=== PATIENT | female | born 1975 | race Caucasian/White ===

== ENCOUNTER 2022-09-03 13:37 | Outpatient (CLI) | payer BC, OTHER, SELFPAY ==
--- OUTSIDE RECORDS SUMMARY | 2022-09-03 13:41 | XMS_ITS | Clinical Summary ---
:1975 Author Organization [employer] [place] [address] Care Team Providers Name Role Phone Alley Khalil Supriya ARCE Primary Care Provider Allergies Active Allergy Reactions Severity Noted Date Comments Adhesive Tape-Silicones Rash 12/11/2011 Adhesive Rash 12/11/2011 Amoxicillin-Pot Diarrhea 09/13/2017 Clavulanate Doxepin Angioedema High 05/18/2012 PN: throat swel ling PN: throat swel ling Doxycycline GI Upset 12/15/2014 Cephalexin Stomach Upset 10/23/2019 Latex Other - Describe In 05/20/2013 Wheezing ,breathing Comment Field, Rash problems Latex, Natural Rubber Rash Low 08/20/2015 Sulfa (Sulfonamide Rash Low 01/23/2008 Antibiotics) Sulfamethoxazole-Trimet Other - Describe In 05/18/2012 PN: Pt doesn't hoprim Comment Field remember rxn. Medications Medication Sig Dispensed Refills Start End Date Status Date loratadine Take 1 Tab by 0 Activ e (CLARITIN) 10 mg mouth. 4 tablet MULTIVITAMIN Take by mouth. 0 Ac tive ORAL clobetasol cream APPLY TO AFFECTED 0 Active 0.05% (TEMOVATE) AREA ON BODY 1-2X 2 0.05 % cream DAILY FOR 2 WEEKS, THEN NEEDED FOR FLARES fluticasone (50 Inhale 1 [place] 16 g 0 Active mcg per into affected 2 actuation) nasal nostril(s) once solution daily. (FLONASE) cholestyramine-s Mix 1 gram (10/16 348.6 g 0 Active ucrose 4 G per scoop) with liquid 2 scoop (QUESTRAN) and take by mouth 4 gram once daily powderIndication s: Bile reflux gastritis medication order Compounded 30 Capsule 1 A ctive composerIndicati Estriol: 1mg in 2 ons: Vaginal olive oil liquid dryness capsule. Insert 1mg vaginally daily for 2 weeks and then twice weekly medication order Orthomolecular Vitamin D3 wi th K2 drops: 10 drops daily??(10,000iu D3) for 8 weeks and then decrease to 5 drops (5000iu D3 per day) 0 Active composer Metagenics Glutagenics: 1 scoop 1-2 times daily Tirosint 100 mcg Take 100 mcg by 90 Capsule 0 Active capIndications: mouth once daily. 2 Hypothyroidism, unspecified type Tirosint 100 mcg Take 100 mcg by 90 Capsule 0 Discontinued capIndications: mouth once daily. 2 22 (Reorder Hypothyroidism, (E-c ancel not unspecified type sen t)) Active Problems Problem Noted Date Diaphragmatic hernia 09/10/2021 Duodenitis 09/10/2021 Polyp of duodenum 09/10/2021 Hypothyroidism 05/05/2019 Overactive bladder 05/14/2018 Chronic epigastric pain 06/09/2017 Irritable bowel syndrome (IBS) 05/23/2014 Major depressive disorder, single episode, mild 2013 Overview: Formatting of this note might be differe nt from the original. Depression Major One Episode Mild Abnormal uterine bleeding 01/08/2014 Overview: Formatting of this note might be differe nt from the original. 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 Encounters Date Type Specialty Care Team Description 08/02/2022 Medical Messaging Anne Marie Fernando After Visit Summary [facility] 07/19/2022 07/19/2022 Phone Office Visit Anne Marie Fernando Phone Visit; Follow Up [facility]aki 06/21/2022 Refill Anne Marie Fernando Refill Requ est [facility] Maki (Cholestyramine -sucrose 4 G Per Scoop) 06/14/2022 Orders Only Anne Marie Fernando <No scans a ttached> [facility] Maki 06/13/2022 Telemedicine Anne Marie Fernando Telehealth; Follow Up [facility] Maki 06/10/2022 Orders Only Lab, [facility] 06/10/2022 Travel 06/07/2022 Office Visit Alley Khalil, Musculoske letal Problem DO (Knuckle pain o n both hands for the last mo nth, possibly due to playing volleyball ) 06/07/2022 Travel from Last 3 Months Immunizations Name Administration Dates Next Due AMB Influenza, IIV4 PF (=>6 mos 08/21/2019 Flulaval,Fluzone Fluarix)(Flu Clinic Only) Influenza Virus, Unspecified 08/21/2019, 09/01/2017, 017, 08/04/2015, 08/02/2014, 07/26/2013 Influenza, IIV3 (Age >=3 years) 07/26/2013 Influenza, IIV4 09/01/2017 Influenza, IIV4 (=>6mos) MDV 08/04/2015 Influenza, Live, Intranasal Laiv3 08/02/2014, 07/26/2013 Influenza,LAIV4 Live Intranasal 08/02/2014, 07/26/2013 (Flumist) TD, UNSPECIFIED 10/13/2004 Td (Age >=7 Years) 10/13/2004 Tdap 12/30/2014, 10/13/2004 Family History Medical History Relation Name Comments Other Brother stomach issues Other Father lots of stomach issues Cancer-breast Maternal Aunt Emphysema Maternal Grandfather Cancer-breast Maternal Grandmother w/mets Hypertension Mother Thyroid Disease Mother Cancer-breast Other maternal cousin Other Paternal Grandfather illness and lost all his blood, ?DIC Mental illness Paternal Grandmother Other Paternal Grandmother stomach iss ues Relation Name Status Comments Brother Alive Father Alive Maternal Aunt Maternal Grandfather Maternal Grandmother Mother Alive Other Paternal Grandfather Paternal Grandmother Social History Tobacco Use Types Packs/Day Years Used Date Former Smoker Quit: 06/13/20 06 Smokeless Tobacco: Never Used Tobacco Cessation: Counseling Given: Yes Alcohol Use Standard Drinks/Week Comments Not Currently 0 (1 standard drink = 0.6 oz pure alcoho l) 1-2 times per month Alcohol Habits Answer Date Recorded How often do you have a drink containing alcohol? Monthly or less 10/30/2020 How many drinks containing alcohol do you have on a Not aske d typical day when you are drinking? How often do you have six or more drinks on one Not asked occasion? Comment: 1-2 times per month 05/22/2021 Sex Assigned at Date Recorded Not on file Obstetrics History Para Term AB IAB SAB Ectopic Multiple Living Live Births 1 1 1 1 Date Outcome GA Total Labor/2nd/3rd Weight Sex Delivery Anes PTL Supriya A 1 A5 Name Clin Labor 02/07 Term 8h 00m 2.58 kg /2006 (5 lb 11 oz) Comments: Vaginal tearing backward s Last Filed Vital Signs Vital Sign Reading Time Taken Comments Blood Pressure 101/66 06/07/2022 1:18 PM CDT Pulse 70 06/07/2022 1:18 PM CDT Temperature 37.8 ??C (100 ??F) 04/04/2022 11:29 AM CDT Respiratory Rate 16 03/21/2022 9:17 AM CDT Oxygen Saturation 99% 06/07/2022 1:18 PM CDT Inhaled Oxygen Concentration - - Weight 68.9 kg (151 lb 12.8 oz) 06/07/2022 1:18 PM CDT Height 171 cm (5' 7.32) 05/24/2022 3:31 PM CDT Body Mass Index 23.55 05/24/2022 3:31 PM CDT Plan of Treatment Upcoming Encounters Date Type Specialty Care Team Description 09/06/2022 Office Visit Cher Vallejo PA [address] [place], [place] [address] (Wo rk) 09/19/2022 Phone Office Visit Emilie Fernando, ANM[facility] [address] [place], [place] [address] (Wo rk) Health Maintenance Due Date Last Done Comments HIV for age 15-65 12/27/1991 Hepatitis C screening for age 0312/26/1994 18-79 COVID-19 vaccine series (3 - 04/17/2021 02/20/2021, 021 Booster for Pfizer series) Influenza for age 9-49 06/13/2022 08/21/2019, 08/21/2019, 09/01/2017, Additional history exists BMI (ht and wt on same day) for 05/24/2023 05/24/2022, 02/0 04/2022, age 18+ 08/31/2021, Additional history exists Depression screening for age 12+ 05/24/2023 05/24/2022, 08/2021, 05/22/2021, Additional history exists Mammogram for age 45-75 05/24/2023 05/24/2022, 05/22/2021, 05/15/2020, Additional history exists Tetanus booster 12/30/2024 12/30/2014, 10/13/2004, 10/13/2004, Additional history exists Fecal testing sDNA-FIT 01/10/2025 01/10/2022 (Cologuard) for age 45-75 Pap test for age 21-65 05/22/2026 05/22/2021, 05/22/2021, 07/23/2018, Additional history exists Lipids for age 45-75 06/13/2026 06/13/2021, 05/05/2019 Tdap Completed 12/30/2014, 10/13/2004 Medical Devices Implanted 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 TSH Add On 06/10/2022 12:01 Hypothyroidism, Results for this PM CDT unspecified type procedure a re in the results section. VITAMIN D 25 Add On 06/10/2022 12:01 Vitamin D deficiency Res ults for this (DEFICIENCY) PM CDT procedure are i n the results section. SEDIMENTATION RATE Routine 06/10/2022 12:01 Polyarthralgia Res ults for this PM CDT procedure are i n the results section. ANTINUCLEAR ANTIBODY BY Routine 06/10/2022 12:01 Polyarthralgi a Results for this IFA PM CDT procedure are i n the results section. RA QUANTITATIVE Routine 06/10/2022 12:01 Polyarthralgia Result s for this PM CDT procedure are i n the results section. from Last 3 Months Results SEDIMENTATION RATE (06/10/2022 12:01 PM CDT) [facility] Method Time Signature SEDIMENTATION RATE 4 <20 mm/hr 06/10/2022 [facility] EVANS [facility] 10:32 PM CDT LABORATORY-[facility] TRAL LABORATORY Specimen Anatomical Collection Method / Collection Time Recei melina Time (Source) Location / Volume Laterality Blood BLOOD SPECIMEN / Venipuncture / 06/10/2022 12:01 06/10 Unknown Unknown PM CDT 12:02 PM CDT Alley Khalil DO HEMATOLOGY Performing Organization Address City/State/ZIP Code Phon e Number [facility] [address] [place] [address] LABORATORY-CENTRAL 2000 LABORATORY ANTINUCLEAR ANTIBODY BY IFA (06/10/2022 12:01 PM CDT) [facility] [place] Method Time Signature ANTINUCLEAR Negative Negative 06/11/2022 [facility] ANTIBODY (MIRNA) 12:27 PM CDT LABORATORY-C EN TRAL LABORATORY Specimen Anatomical Collection Method / Collection Time Recei melina Time (Source) Location / Volume Laterality Blood BLOOD SPECIMEN / Venipuncture / 06/10/2022 12:01 06/10 Unknown Unknown PM CDT 12:02 PM CDT Narrative [facility] LABORATORYCENTRAL [facility] - 06/11/2022 12:27 PM CDT Method: MIRNA screen performed by (IFA) on HEP-2 substrate, IgG Alleynaun Khalil DO CHEMISTRY Performing Organization Address City/[facility]/ZIP [facility] Phon e Number [facility] [address] [place] [address] LABORATORY-CENTRAL 2000 LABORATORY (ABNORMAL) VITAMIN D 25 (DEFICIENCY) (06/10/2022 12:01 PM CDT) Analysis Performed At Patho logist Time Signature VITAMIN D 24.4 (L) 30.0 - 06/13/2022 [facility] TOTAL 80.0 ng/mL 4:52 PM CDT LABORATORY-[facility] TR[facility] LABORATORY Specimen Anatomical Collection Method / Collection Time Recei melina Time (Source) Location / Volume Laterality Blood BLOOD SPECIMEN / Venipuncture / 06/10/2022 12:01 06/10 Unknown Unknown PM CDT 12:02 PM CDT Narrative [facility] - 06/13/2022 4:52 PM CDT Deficiency: ? <20 ng/mL Insufficiency: ?20-29 ng/mL Sufficiency: ?30-80 ng/mL Possible Toxicity: ??>80 ng/mL Based on [place] [facility] recommend ations Anne Marie Fernando NEONATAL SPECIALIST SEND OUTS Performing Organization Address City/[facility] Code Phon e Number [facility] [address] [place] [address] LABORATORY-CENTRAL 2000 LABORATORY (ABNORMAL) TSH (06/10/2022 12:01 PM CDT) P athologist Signature TSH 0.03 (L) 0.35 - 4.94 06/14/2022 [facility] uIU/mL 7:25 AM CDT LABORATORY-CENT RAL LABORATORY Specimen Anatomical Collection Method / Collection Time Recei melina Time (Source) Location / Volume Laterality Blood BLOOD SPECIMEN / Venipuncture / 06/10/2022 12:01 06/10 Unknown Unknown PM CDT 12:02 PM CDT Narrative [facility] LABORATORY-CENTRAL LABORAT ORY - 06/14/2022 7:25 AM CDT In Adults, TSH values between 5.00 and 10.00 uIU/ml do not necessarily indicate the presence of Hyp othyroidism. Correlation with clinical findings such as presence of goiter and/or Thyroperoxidase (TPO) Antibody ma y be helpful. For more information please refer to ROYA 20 ; 291: [id number]. Anne Marie Fernando NEONATAL SPECIALIST CHEMISTRY Performing Organization Address City/State/ZIP Code Phon e Number [facility] [address] [facility] [place] [address] LABORATORY-CENTRAL 2000 LABORATORY RA QUANTITATIVE (06/10/2022 12:01 PM CDT) athologist Signature RHEUMATOID <7.00 <12.50 06/11/2022 [facility],QUANT IU/mL 11:06 AM CDT LABORATORY-[facility] T RAL LABORATORY Specimen Anatomical Collection Method / Collection Time Recei melina Time (Source) Location / Volume Laterality Blood BLOOD SPECIMEN / Venipuncture / 06/10/2022 12:01 06/10 Unknown Unknown PM CDT 12:02 PM CDT Alley Khalil DO SEND OUTS Performing Organization Address [facility]/ZIP Code Phon e Number [facility] [address] [facility] [place] [address] LABORATORY-CENTRAL 2000 LABORATORY VITAMIN B12 (06/10/2022 12:01 PM CDT) athologist Signature VITAMIN B12 [phone] 06/18/2022 [facility] pg/mL 11:24 AM CDT LABORATORY-CENT RAL LABORATORY Specimen Anatomical Collection Method / Collection Time Recei melina Time (Source) Location / Volume Laterality Blood BLOOD SPECIMEN / Venipuncture / 06/10/2022 12:01 06/10 Unknown Unknown PM CDT 12:02 PM CDT Anne Marie Fernando NP CHEMISTRY Performing Organization Address City/[facility]/ZIP [facility] Phon e Number [facility] [address] [facility] [place] [address] LABORATORY-CENTRAL 2000 LABORATORY from Last 3 Months Insurance Payer Benefit Plan / Subscriber ID Effective Dates Phone Addre ss Type Group [employer] OF [id number] 2021-Prese [address] [place] [address] [facility] [id number] 2020-Presen [address] [place] [address] Susie Simmons Personal/Family Self [address] [place] (Home) [place] [phone] (Work) IrisSusie Personal/Family Self [address] A (Home) [place] [phone] (Work) Advance Directives Latest Code Status on File Code Status Date Activated Date Inactivated Comments Full Code 04/20/2014 9:31 AM 04/20/2014 5:48 PM Care Teams Awning Craftsman Relationship Specialty Start Date End Date Alley Khalil DO PCP - General Family Practice 06/07/22 [place] [id number]
[2022-09-03 21:32] LABS: Basophils Absolute Auto 0.04 K/uL (0.00-0.30); Basophils Percent Auto 0.7 % (0.0-3.0); Eosinophils Absolute Auto 0.11 K/uL (0.00-0.50); Eosinophils Percent Auto 1.9 % (0.0-7.0); Hematocrit 44.6 % (33.0-51.0); Hemoglobin* 14.6 gm/dL (12.0-16.0); Lymphocytes Percent Auto 50.8 % (20-44); Mean Corpuscular HGB Conc 33 gm/dL (32-36); Mean Corpuscular Hemoglobin 28 pg (26-34); Mean Corpuscular Volume 86 fL (80-100); Monocytes Percent Auto 6.3 % (0.0-11.0); Neutrophils Percent Auto 40.3 % (42.0-72.0); Platelet Count* 186 K/uL (140-440); RDW Coefficient of Variation % 13.1 % (11.5-15.5); Red Blood Count 5.18 m/uL (4.00-5.20); White Blood Count* 5.71 K/uL (4.50-11.00)
[2022-09-03 21:54] LABS: C Reactive Protein* < 0.5 mg/dL (0.5-1.0)
[2022-09-03 21:55] LABS: Slide Review Reflex No
[2022-09-03 22:12] LABS: Erythrocyte SedimentationRate* 6 mm/hr (2-20)
[2022-09-03 23:09] LABS: Free T4 Free Thyroxine* 1.55 ng/dL (0.70-1.85)
[2022-09-05 19:17] LABS: Rheumatoid Factor <10 IU/mL (0-14)
== END 2022-09-03 13:38 | disposition home or self-care (01) ==
PROVIDERS: PCP Physician Assistant Medical; Visit Provider Nurse Practitioner Family
DX: E07.9 Disorder of thyroid, unspecified (principal); M25.541 Pain in joints of right hand; T14.8XXA Other injury of unspecified body region, initial encounter
CPT/HCPCS: 84439; 84443; 85025; 85651; 86140; 86431

== ENCOUNTER 2023-01-14 17:16 | Outpatient (CLI) | payer BC, OTHER, SELFPAY ==
--- OUTSIDE RECORDS SUMMARY | 2023-01-14 17:19 | XMS_ITS | Continuity of Care Document ---
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 Name Role Phone No Information Unavailable Unavailable Allergies, Adverse Reactions, Alerts Substance Reaction Status Criticality adhesive tape Rash Active No Information AMOXICILLIN TRIHYDRATE Nausea/Vomiting Active No Information POTASSIUM CLAVULANATE Nausea/Vomiting Active No Information latex Active No Information Sulfa (Sulfonamide Antibiotics) Active No Information Medications Medication Instructions Dosage Effective Dates (start - stop) Status Comments omeprazole 40 mg capsule,delayed release take 1 capsule by oral route every day before a meal 40 MG - Active liothyronine 5 mcg tablet take 1 tablet by oral route every day 5 MCG - Active multivitamin tablet take 1 tablet by oral route every day 1 tablet - Active levothyroxine 100 mcg capsule take 1 capsule by oral route every day 100 MCG - Active PROBIOTIC (unknown strength) take 1 Tablet by Oral route every day Not Available - Active Procedures Procedure Date Established Level 5 Ugi Endo; W/bx 1/mx Level Iv-surg Path Gross/micro 21 Breath Test Glucose Breath Test Fructose Offic/outpt E&m Estab Mod-hi 2 16 Hughes PH Monitor Hughes Placement Offic/outpt E&m Estab Mod-hi 2 16 Ugi Endo; W/bx 1/mx Level Iv-surg Path Gross/micro 16 Ugi Endo; W/bx 1/mx Level Iv-surg Path Gross/micro 13 Advance Directives Directive Yes / No Effective Date File Name No Information Encounters Encounter Description Practice Location Reason(s) For Visit Diagnoses Date Provider Providers Copied on Encounter [facility], [address] [address], [place], [id number], [place] tel:[phone] No Information 2 No Information Established Level 5 [facility], [address] [address], [place], [id number], [place] tel:[phone] [facility] GI Symptoms or Concerns (chief complaint) Upper abdominal painBloatingNa useaColon cancer screening 2 Sukhwinder Meek. [address], [id number], [place]. tel:[phone] Jeremy Gomez MD. tel:[phone] erring Provider: Referral Self. [facility], [address] [address], [place], [id number], [place] tel:[phone] [facility] Hiatal herniaGastropa thyGastric polypsDuodenit isEpigastric painEpigastric painDiaphragma tic hernia without obstruction or gangreneDiseas e of stomach and duodenum, unspecifiedPol yp of stomach and duodenum 1 Ben Barillas. [address], [id number], [place]. tel:[phone] Jeremy Gomez MD. tel:[phone] erring Provider: Michelle Pena [facility], [address] [place], [address]. tel:[phone] [facility], [address] [address], [place], [id number], [place] tel:[phone] [facility] No Information 1 Margarita Clay. [address] [facility], [facility] [address], [place], [place], [id number], [place]. tel:[phone] [facility], [address] [address], [place], [id number], [place] tel:[phone] [facility] Bloating 7 Lyly Mcnair. [address] [place] [address], [facility] [address], [place], [id number], [place]. tel:[phone] [facility], [address] [address], [place], [id number], [place] tel:[phone] [facility] Abdominal distension (gaseous) 6 Pam Mclain. [address] [place] [address], [address], [id number], [place]. tel:[phone] Jeremy Gomez MD. tel:[phone] erring Provider: Referral Self. [facility], [address] [address], [place], [id number], [place] tel:[phone] [facility] Abdominal distension (gaseous) 6 Pam Mclain. [address] [place] [address], [facility] [address], [place], [id number], [place]. [phone] Jeremy Gomez MD. tel:[phone] Offic/outpt E&m Estab Mod-hi 2 [facility], [address] [address], [place], [id number], [place] tel:[phone] [facility] GI Symptoms or Concerns (chief complaint) BloatingElevat ed blood-pressure reading, w/o diagnosis of htn 6 Lyly Mcnair. [address] [place] [address], [facility] [address], [place], [place], [id number], [place]. tel:[phone] Referring Provider: Referral Self. [facility], [address] [address], [place], [id number], [place] tel:[phone] [facility] Chest pain, unspecified Oct-3 1-201 6 Margarita Clay. [address] [facility] [address], [place], [place], [id number], [place]. tel:[phone] Referring Provider: Obed Avila MD, [address] [facility], [place], [address] . tel:[phone] [facility], [address] [address], [place], [id number], [place] tel:[phone] [facility] Chest pain, unspecified Oct-2 7- 6 Ben Barillas. [address] [facility], [facility] [address], [place], [id number], [place]. tel:[phone] Referring Provider: Referral Self. [facility], [address] [address], [place], [place], [id number], [place] tel:[phone] [facility] Chest pain, unspecified type Oct-1 3- 6 Pam Mclain. [address] [facility], [facility] [address], [place], [place], [id number], [place]. tel:[phone] Referring Provider: Referral Self. [facility], [address] [address], [place], [id number], [place] tel:[phone] [facility] Bloating Sep-2 2-201 6 Pam Mclain. [address] [facility], [facility] [address], [place], [place], [id number], [place]. tel:[phone] Referring Provider: Referral Self. Offic/outpt E&m Estab Mod-hi 2 [facility], [address] [address], [place], [id number], [place] tel:[phone] [facility] GI Symptoms or Concerns (chief complaint) Acute gastritis without hemorrhage, unspecified gastritis typeBloating Sep-0 1-201 6 Pam Mclain. [address] [facility], [address], [place], [place], [id number], [place]. tel:[phone] Referring Provider: Referral Self. [facility], [address] [address], [facility] [place], [id number], [place] tel:[phone] [facility] Acute gastritis without hemorrhage, unspecified gastritis typeDisease of stomach and duodenum, unspecified Mackenzie Lobo. [address], [id number], [place]. tel:[phone] Referring Provider: Referral Self. [facility], [address] [address], [facility] [place], [id number], [place] tel:[phone] [facility] Gastritis W/o BleedGastroduo denal Dis NosGastritis W/o BleedGastroduo denal Dis Nos Brett Thornton. [address] [facility] [address], [place], [id number], [place]. tel:[phone] Referring Provider: Jonny Kerr, [address] [place] [address], [address]. tel:[phone] Family History Family Member Type Diagnosis Age At Onset Maternal uncle Problem (finding) malignant neoplasm of skin Father Problem (finding) Alive and well Mother Problem (finding) Thyroid disorder Mother Problem (finding) Irritable bowel disease Mother Problem (finding) Alive and well Brother Problem (finding) Alive and well Son Problem (finding) Alive and well Maternal grandmother Problem (finding) breast cancer Immunizations Vaccine Date Status Comments SARS-COV-2 (COVID-19) vaccin e, mRNA, spike protein, LNP, preservative free, 30 mcg/0.3mL dose administered Note: [facility] bi-direct ional interface ; Source: Other Registry SARS-COV-2 (COVID-19) vaccin e, mRNA, spike protein, LNP, preservative free, 30 mcg/0.3mL dose administered Note: [facility] bi-direct ional interface ; Source: Other Registry Afluria Qd administered Note: [facility] bi-directional interface ; Source: Other Registry Afluria Qd administered Note: [facility] bi-directional interface ; Source: Other Registry Influenza administered Note: [facility] bi-d irectional interface ; Source: Other Registry tetanus toxoid, reduced diphtheria toxoid, and acellular pertussis vaccine, adsorbed administered Note: [facility] b i-directional interface ; Source: Other Registry influenza virus vaccine, vijaya e, attenuated, for intranasal use administered Note: [facility] C bi- directional interface ; Source: Other Registry influenza virus vaccine, vijaya e, attenuated, for intranasal use administered Note: [facility] bi- directional interface ; Source: Other Registry tetanus toxoid, reduced diphtheria toxoid, and acellular pertussis vaccine, adsorbed administered Note: [facility] b i-directional interface ; Source: Other Registry Payers Payer name Insurance type Covered democrat ID Authoriza tion(s) No Information Social History Type Description Quantity Date Captured Comments Sex Female Smoking Status No Information Chief Complaint And Reason For Visit No Information Reason For Referral Reason For Referral No Information Plan Of Treatment Date Type Action Status Referral Ordered: Colonoscopy Appointment date/timeframe: First Available ordered Referral Ordered: referred to [facility] billing specialist for low fodmpa diet ordered History Of Present Illness Encounter Date Complaint History Of Prese nt Illness GI Symptoms or Concerns The lonnie ent had a scheduled followup virtual visit.This was for followup of chronic abdominal pain, chronic bloating symptoms.Susie is a 46-year-old female with a history of chronic abdominal pain and bloating, status post previous evaluation. She has been seen by [facility] in the past and has undergone previous EGD as well as remote colonoscopy. She has had multiple CAT scans, laboratories as well as fructose intolerance testing, bacterial overgrowth testing, lactose intolerance testing, Hughes pH test. She has also tried multiple medications to see if it would help with symptoms without significant improvement, including omeprazole, Carafate. Dietary changes including a low FODMAPs diet. She is currently avoiding gluten. She is also currently following with the [facility] and has tried multiple supplements as well as collagen and other supplements they had recommended. She tells me she has also tried acupuncture.She denies alarm features including weigh GI Symptoms or Concerns Mrs. Alize martinez is a pleasant 40-year-old female who is followed in clinic by Dr. Orozco. He last saw her in clinic on June 13, 2016. She has had multiple symptoms that include sore throat, midabdominal pressure, chest pressure, bloating, gas, chest pain along the bones of her chest. She has had multiple abdominal surgeries in the past. She has a bowel movement on a daily basis and reports that sometimes, she needs to use glycerin suppositories to help facilitate her BMs.She has had allergy testing for foods and all of that has returned negative.Dr. Orozco ordered breath testing, but the patient has not had that done yet and she will take those home today.She continues to have pain in her throat that she describes as a glass sensation and that has been unchanged since last year. She has been on a PPI without improvement in the throat pain. Her ENT doctor had told her in the past that it was probably related to acid reflux and that is the reason why she was sent to our clinic for other evaluation of that. Dr. Mann had done an EGD and that showed a normal esophagus. Dr. Orozco ordered a Hughes test and that returned normal. GI Symptoms or Concerns GASTROEN TEROLOGY FOLLOWUP VISITThe patient is 40-year-old female last seen by Dr. Mann on an open access endoscopy basis, 04/05/2016. Preoperative indication was chest pain and abdominal pain, failure to respond to treatment. The exam showed acute gastritis without hemorrhage. The biopsies of the stomach showed reactive gastropathy with mucosal erosions. No chronic gastritis. No Helicobacter identified. The patient called several times and was mentioning ongoing abdominal discomfort. It seems that the patient wanted Carafate prescribed as this was part of the discussion with Dr. Mann. On June 06, the patient called back and was on Colestid instead of Carafate. I am unsure how the patient got put on Colestid instead of Carafate. This made her feel worse and she discontinued that drug.She today mentions ongoing sore throat, epigastric pressure, retrosternal pressure, periumbilical discomfort. The sore throat is reproducible by touching her neck. Thyroid scan is pe Functional Status Date Functional Assessmen t No Information Instructions Date Instruction Additional Infor jammie 1. recommend trial o f gas x (over the counter) three times a day with meals 2. consider miralax - take 1-2 capfuls daily adjust as needed up to 2 capfuls twice daily (favor miralax over magnesium for chronic use for constipation)3. colonoscopy for colon cancer screening4. low dose TCA (such as nortriptyline) discussed, declined by patient at this time5. continue to follow with [facility]6. f/u as needed Related to Colon cancer screening Hiatal Hernia Related to Hiata l hernia NSAIDS List Related to Hiata l hernia 1. Discontinue Dewitt tid today.2. Start Carafate 1 g twice daily. The patient given new prescription to her pharmacy of choice, #60 with two refills.3. The patient given the literature regarding gas dyspepsia and we discussed the role of gas producing foods in her diet.4. She remains symptomatic despite the above. Further considerations may include breath testing to rule out bacterial overgrowth, lactose intolerance or fructose intolerance. This can be discussed at her outpatient followup as below.5. Recommend she discontinue milk of magnesia and try MiraLax 17 g daily titrated to one bowel movement daily or every other day. As she remains symptomatic despite the above, consideration could be given to a consultation with colorectal and surgical associates for formal pelvic floor testing.6. The patient will see me back in one month or sooner if clinically indicated for followup.7. The patient's questions were answered today to her satisfaction regarding the above and she voices understanding and agrees with the above plan. Related to Acute gastritis without hemorrhage, unspecified gastritis type Gas and Gas Pain Related to Bloa ting Dyspepsia Related to Bloat ing Gastritis Related to Acute gastritis without hemorrhage, unspecified gastritis type Assessments Type Assessment Date No Information Patient Care Teams Name Effective Dates (start - stop) Status Members No Information
[2023-01-14 22:51] LABS: Clue Cells No Clue Cells Seen (None Seen); Trichomonas No Trichomonas Seen (None Seen); Yeast No Yeast Seen (None Seen)
== END 2023-01-14 17:17 | disposition home or self-care (01) ==
PROVIDERS: Visit Provider Nurse Practitioner Family
DX: N89.8 Other specified noninflammatory disorders of vagina (principal)
CPT/HCPCS: 87086; 87210

== ENCOUNTER 2023-08-13 15:04 | Outpatient (CLI) | payer BC, OTHER, SELFPAY | END 2023-08-13 15:05 | disposition home or self-care (01) | LOC: NFLDUCREF 15:05 | PROVIDERS: Visit Provider Nurse Practitioner Family | DX: J02.9 Acute pharyngitis, unspecified (principal) | CPT/HCPCS: 87070 ==

== ENCOUNTER 2025-08-26 10:34 | Outpatient (CLI) | payer BC, SELFPAY ==
--- NOTE | 2025-08-26 11:00 | CRLHL7_ITS ---
For Patients: As a result of the Century Cures Act, medical imaging exams and procedure reports are released immediately into your electronic medical record. You may view this report before your referring provider. If you have questions, please contact your health care provider. INDICATION: Dyspnea, elevated D-dimer, suspected pulmonary embolism TECHNIQUE: CT chest PE was acquired with 95 cc Isovue 370 IV contrast. Coronal and MIP reconstructions were performed. COMPARISON: None. FINDINGS: Heart and vasculature: Contrast opacification of the pulmonary arterial tree is adequate. No sign of pulmonary embolism. Heart size is normal. Thoracic aorta and pulmonary artery are normal in caliber. Lungs and pleura: No suspicious nodules or infiltrates. Minimal atelectasis. No pleural effusions, pleural thickening, or pneumothorax. Lymph nodes/mediastinum: No mediastinal, hilar, or axillary adenopathy. Chest wall: Unremarkable. Upper abdomen: No acute or significant findings. No acute or suspicious osseous abnormality. IMPRESSION: No evidence of pulmonary embolism. No acute findings in the chest. Please note that all CT scans at this facility use dose modulation, iterative reconstruction, and/or weight-based dosing when appropriate to reduce radiation dose to as low as reasonably achievable. Dictated by Lou Cook MD @ 08/26/2025 11:25:19 AM (Electronically Signed)
== END 2025-08-26 10:35 | disposition home or self-care (01) ==
LOC: CT 10:35
PROVIDERS: PCP Family Medicine; Visit Provider Nurse Practitioner Family
DX: R06.00 Dyspnea, unspecified (principal); R79.89 Other specified abnormal findings of blood chemistry; Z03.89 Encounter for observation for other suspected diseases and conditions ruled out
CPT/HCPCS: 71275; Q9967